=== PATIENT | female | born 1970 | race Caucasian/White ===

== ENCOUNTER 2018-05-12 05:30 | Day surgery (SDC) | payer OTHER ==
[~2018-05-12] VITALS: Ht 162.6 cm; Wt 59.0 kg
[~2018-05-12 05:30] MED LIST: BUSPIRONE HCL10 MG PO; CYMBALTA60 MG PO; MINIPRESS1 MG PO; PRAZOSIN HCL1 MG PO; QUETIAPINE FUM100 MG PO; SUMATRIPTAN SU100 MG PO; SYMBICORT160 MCG/4. INH; VALACYCLOVIR1000 MG PO; VENTOLIN HFA 1818 GM INH
[2018-05-12 11:59] VITALS: BP 151/91
[2018-05-12] MEDS ORDERED: NORCO 5-325 TA1 EACH PO (14:49)
[2018-05-12 15:29] VITALS: BP 151/91
--- NOTE | 2018-05-13 11:37 | O ---
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 PROCEDURE: 1. Right great toe interposition arthroplasty. 2. Right great toe proximal phalangeal Corazon osteotomy. SURGEON: Luther Gallo MD CLUB CONCIERGE: Dominique Monzon. ANESTHESIA: General. ESTIMATED BLOOD LOSS: Minimal. DRAINS: No drains. TOURNIQUET TIME: One hour. DESCRIPTION OF PROCEDURE: The patient was brought to the operating room where she was placed under general anesthesia. Once under adequate general anesthesia, her right lower extremity was prepped and draped in sterile manner. The extremity was elevated, exsanguinated and tourniquet placed to 300 mmHg. The patient's prior incision was then extended distally approximately 2 cm. Dissection was carried down to the metatarsophalangeal joint capsule. This was then incised in line with the incision exposing the first metatarsophalangeal joint. The patient had arthritic changes on both the proximal phalanx of the great toe as well as the first metatarsal head with thin cartilage dorsally. Osteophytes were removed with the rongeur and subsequently the Cartiva first metatarsophalangeal joint implant was then placed into the metatarsal head, this was done by placing a guidewire. Then, using the 10 mm reamer to prepare the metatarsal head and this was done under fluoroscopic guidance. A 10 mm Cartiva implant was then placed. Excellent fixation was achieved. This did decompress the joint considerably and was placed in a central position in the first metatarsal head. Subsequent to this, a wire was placed in the proximal phalanx [facility] [address] [place] [address] OPERATIVE REPORT Name: NAIF JERONIMO Room #: 150-2 [facility] M.R.#: [id number] Admission: 05/12/18 ������������������ Attend Phys: Luther Gallo MD Discharge: ������������������ Date of : 72 Report #: [id number] of the great toe and a dorsal closing wedge osteotomy was then performed on the proximal phalanx approximately 4 mm. This was then completed with fixation with a 3.0 cannulated screw placed under fluoroscopic guidance. Excellent fixation and alignment was achieved as verified under fluoroscopy. The wound was irrigated copiously and closed with 2-0 Vicryl in the capsular layer, 2-0 Vicryl in the subcutaneous tissues and 3-0 nylon for the skin. The wound was dressed with Xeroform, 4 x 4s, and sterile soft compressive dressing was placed. Final fluoroscopic images were taken noting excellent alignment and fixation. The wound was then dressed with Xeroform, 4 x 4s and a sterile soft compressive dressing. Tourniquet was let down approximately one hour. Toes were pink and warm with good capillary refill. There were no complications from the procedure. The patient tolerated the procedure well and was sent to the recovery room without incident. ��������������������������������������������� <ELECTRONICALLY SIGNED> ���������������������������������������� By: Luther Gallo MD ��������������������������������������������� 05/13/18 [id number] Luther Gallo MD /nt
== END 2018-05-12 16:45 | disposition home or self-care (01) ==
LOC: OR 05:30 → TBA 05:30 → OR 09:24
DX: M20.21 Hallux rigidus, right foot (principal); M19.071 Primary osteoarthritis, right ankle and foot; G43.909 Migraine, unspecified, not intractable, without status migrainosus; F32.9 Major depressive disorder, single episode, unspecified; F41.9 Anxiety disorder, unspecified; J45.909 Unspecified asthma, uncomplicated; F17.210 Nicotine dependence, cigarettes, uncomplicated; Z98.84 Bariatric surgery status; Z98.890 Other specified postprocedural states; Z79.899 Other long term (current) drug therapy; Z88.8 Allergy status to other drugs, medicaments and biological substances
CPT/HCPCS: 50010; 50101; 50386; 50951; 55430; 56524; 56526; 56527; 57091; 57180; 59999; 62110; 62900; 64039; 70005